=== PATIENT | female | born 1980 | race African-American/Black ===

== ENCOUNTER → 2017-01-13 | Outpatient (CLI) | payer OTHER ==
[~2017-01-13] MED LIST: BACTRIM DS TABL1 TA1 PO; BENTYL20 MG PO; FLEXERIL PO; GABAPENTIN300 M2 PO; HCTZ PO; IBUPROFEN PO; VICODIN PO
--- NOTE | ~2017-01-13 | CR172 ---
[facility] A Service of [facility] RADIOLOGY TEXT RESULTS PATIENT: MAVERICK PHILLIPS LOCATION: [facility] : 80 UNIT #: [id number] AGE: [address]: CLAUDIA NDIAYE SEX: F ORDER DR: [id number] [facility] [address] [place], [place] [address] [id number] O MR#: [id number] Acc #: [id number] NAME: MAVERICK PHILLIPS : 1980 SEX: F STUDY DATE/TIME: 01/13/2017 14:46 UNIT: [facility] ROOM: STUDY DESCRIPTION: CR Knee 3 Views Lt Attending Physician: Lanny Olson Referring Physician: Lanny Olson Ordering Physician: Lanny Olson Primary Care Physician: Gloria Horn M.D. MEDICAL IMAGING REPORT This report is preliminary unless electronic signature is present EXAM Left knee 3 views 01/13/2017 HISTORY Left knee pain posteriorly and laterally for 2 months. No known injury. FINDINGS AP and lateral projection of the knee shows smooth articular anatomy without indication of fracture or dislocation at the major weight-bearing surface of the knee. There is no indication of radiopaque foreign body about the knee surface or joint effusion. IMPRESSION Normal knee. Dictated by... Kilo Tijerina M.D. THIS IS AN ELECTRONICALLY VERIFIED REPORT Kilo Tijerina M.D. at 01/15/2017 8:15 AM KRT/to TD: 01/13/2017 18:16 JOB #: [id number] MEDICAL IMAGING REPORT Page 1 of 1 COPY
== END | disposition home or self-care (01) ==
LOC: CRAD 14:26
DX: M25.562 Pain in left knee (principal)
CPT/HCPCS: 73562